=== PATIENT | female | born 1935 | race Caucasian/White ===

== ENCOUNTER 2016-09-26 22:46 | Emergency (ER) | payer MEDICARE, MEDICAID ==
[2016-09-26 23:24] LABS: ABSOLUTE EOSINOPHILS # (AUTO) 0.4 10^3/uL (0.0-0.6); ABSOLUTE LYMPHOCYTES (AUTO) 2.1 10^3/uL (0.5-4.7); ABSOLUTE MONOCYTES (AUTO) 0.7 10^3/uL (0.1-1.4); BASOPHILS % (AUTO) 0.5 % (0-2); EOSINOPHILS % (AUTO) 5.3 % (0-6); HEMATOCRIT 42.7 % (36.0-47.0); HEMOGLOBIN 14.5 g/dL (12.0-15.5); HGB HCT DIFFERENCE 0.8; LYMPHOCYTES % (AUTO) 29.8 % (13-45); MEAN CORPUSCULAR HEMOGLOBIN 30.8 pg (27.0-33.4); MEAN CORPUSCULAR VOLUME 91 fl (80-97); MONOCYTES % (AUTO) 9.3 % (3-13); RED BLOOD COUNT 4.71 10^6/uL (3.72-5.28); RED CELL DISTRIBUTION WIDTH 13.3 % (11.5-14.0); SEGMENTED NEUTROPHILS % (AUTO) 55.1 % (42-78); WHITE BLOOD COUNT 7.2 10^3/uL (4.0-10.5)
--- NOTE | 2016-09-26 23:53 | ER Document Report ---
ED General - General Stated Complaint: POSSIBLE SYNCOPE Notes: Patient is an 81-year-old female presents with complaint of syncopal episode. Patient's is a correction. She has her sons the bedside. Said that the staff had just given a shower and her walking her I was shower when she had a syncopal episode. He says she typically does not do this. The denied any other associated symptoms. Patient himself cannot tell me anything about what happened being that she has severe dementia. Patient's son says that she says history of dementia and recurrent urinary tract infections. Patient otherwise has been acting at her baseline since the episode according to the son. TRAVEL OUTSIDE OF THE [place] IN LAST 30 DAYS: No - Related Data Allergies/Adverse Reactions: aspirin [Aspirin] Allergy (Unknown, Verified 04/17/16 09:45) Penicillins Allergy (Unknown, Verified 04/17/16 09:45) Sulfa (Sulfonamide Antibiotics) Allergy (Unknown, Verified 04/17/16 09:45) Past Medical History - Social History Smoking Status: Unknown if Ever Smoked Frequency of alcohol use: None Drug Abuse: None Family History: Reviewed & Not Pertinent - Past Medical History Cardiac Medical History: Reports: Hx Coronary Artery Disease, Hx Hypercholesterolemia, Hx Hypertension Denies: Hx Heart Attack Pulmonary Medical History: Denies: Hx Asthma, Hx Bronchitis, Hx COPD, Hx Pneumonia Neurological Medical History: Denies: Hx Cerebrovascular Accident, Hx Seizures GI Medical History: Reports: Hx Gastroesophageal Reflux Disease Musculoskeltal Medical History: Denies Hx Arthritis Psychiatric Medical History: Reports: Hx Dementia, Hx Depression - Anxiety Past Surgical History: Reports: Hx Hysterectomy - Immunizations Hx Diphtheria, Pertussis, Tetanus Vaccination: Yes Review of Systems - Review of Systems -: Yes ROS unobtainable due to patient's medical condition - Patient has severe dementia Physical Exam - Vital signs Vitals: Temp Pulse Resp BP Pulse Ox 98.2 F 97 20 109/64 95 09/26/16 23:00 09/26/16 23:00 09/26/16 23:00 09/26/16 23:00 09/26/16 23:00 - Notes Notes: General Appearance: Well nourished, alert, cooperative, no acute distress, no obvious discomfort. Vitals: reviewed, See vital signs table. Head: no swelling or tenderness to the head Eyes: PERRL, EOMI, Conjuctiva clear Mouth: No decreasd moisture Lungs: No wheezing, No rales, No rhonci, No accessory muscle use, good air exchange bilaterally. Heart: Normal rate, Regular rythm, No murmur, no rub Abdomen: Normal BS, soft, No rigidity, No abdominal tenderness, No guarding, no rebound, no abdominal masses, no organomegaly Extremities: strength 5/5 in all extremities, good pulses in all extremities, no swelling or tenderness in the extremities, no edema. Skin: warm, dry, appropriate color, no rash Neuro: speech clear, oriented x 1, normal affect, responds appropriately to questions. Cranial nerves II through XII are intact. Distal sensation intact. Patient has good strength in all 4 extremities. Course - Vital Signs Vital signs: Temp Pulse Resp BP Pulse Ox 98.4 F 97 12 117/88 H 100 09/27/16 05:38 09/26/16 23:00 09/27/16 05:23 09/27/16 05:23 09/27/16 05:23 - Laboratory Result Diagrams: 09/26/16 23:15 09/27/16 00:16 Laboratory results interpreted by me: 09/26/16 09/27/16 09/27/16 23:01 00:16 03:45 Sodium 145.1 H Carbon Dioxide 31 H BUN 23 H Est GFR ( Amer) 51 L Est GFR (Non-Af Amer) 42 L Glucose 127 H POC Glucose 132 H AST 65 H Creatine Kinase 27 L Ur Leukocyte Esterase LARGE H - EKG Interpretation by Me Additional EKG results interpreted by me: 09/26/16 23:52 EKG is reviewed and interpreted by me. EKG shows normal sinus rhythm with rate of 93 beats per minute. No ST segment elevation or depression. No ischemic T wave inversions. NV interval is prolonged. QRS duration QTC intervals are within normal range. Old EKG for comparison is from 04/29/2014. - Transfer of Care Notes: 09/27/16 07:00 Patient is feeling improved. Patient says no concerning symptoms associated with the syncope. Syncope could be related to coming out of the warm shower from correction. Her cardiac enzymes are negative. CT scan of the head was obtained over age. This is negative. I do not think a CT scan of the neck was needed. The patient was assisted down to the floor when the episode happened. There is no history of significant can trauma. She does have UTI. We will place her on Cipro. I restrict return precautions if she develops any diarrhea due to her history of severe fear C. difficile in the past following antibiotics. I did discuss this with the son. He is agreeable to plan. Patient will be discharged home. Dictation of this chart was performed using voice recognition software; therefore, there may be some unintended grammatical errors. Discharge - Discharge Clinical Impression: Syncope Qualifiers: Syncope type: unspecified Qualified Code(s): R55 - Syncope and collapse UTI (urinary tract infection) Qualifiers: Urinary tract infection type: site unspecified Hematuria presence: without hematuria Qualified Code(s): N39.0 - Urinary tract infection, site not specified Condition: Good Disposition: HOME, SELF-CARE Additional Instructions: Mrs. Hogue's urine has been sent for culture. If it grows bacteria that is not sensitive to the Cipro we will call immediately to change her antibiotic. She does have a history of C. difficile in the past. It is therefore extremely important that she returns to ER immediately if she has any diarrhea. Is also very important she returns to the ER immediately if she has fevers, recurrent passing out, chest pain, or if she appears unwell. Prescriptions: Ciprofloxacin HCl [Cipro 500 mg Tablet] 500 mg PO BID #10 tablet Referrals: MIR MERCHANT MD [Primary Care Provider] - 09/28/16
[2016-09-27 00:51] LABS: ALANINE AMINOTRANSFERASE 16 U/L (9-52); ALBUMIN 4.1 g/dL (3.5-5.0); ALKALINE PHOSPHATASE 91 U/L (38-126); ANION GAP 11 (5-19); ASPARTATE AMINO TRANSFERASE 65 U/L (14-36); BILIRUBIN,TOTAL 0.8 mg/dL (0.2-1.3); BLOOD UREA NITROGEN 23 mg/dL (7-20); CALCIUM 9.3 mg/dL (8.4-10.2); CARBON DIOXIDE 31 mmol/L (22-30); CHLORIDE 103 mmol/L (98-107); CREATINE KINASE 27 U/L (30-135); CREATININE RESULT 1.22 mg/dL (0.52-1.25); GLUCOSE 127 mg/dL (75-110); POTASSIUM 3.7 mmol/L (3.6-5.0); SODIUM 145.1 mmol/L (137-145); TOTAL PROTEIN 7.3 g/dL (6.3-8.2)
[2016-09-27 01:01] LABS: CREATINE KINASE MB 0.22 ng/mL (<4.55)
[2016-09-27 01:06] LABS: TROPONIN I < 0.012 ng/mL
[2016-09-27] MEDS ORDERED: NORMAL SALINE 1000 ML 500 ML IV ONE (01:48)
[2016-09-27 04:03] LABS: APPEARANCE,URINE CLOUDY; BILIRUBIN,URINE NEGATIVE (NEGATIVE); GLUCOSE, URINE NEGATIVE (NEGATIVE); KETONES,URINE NEGATIVE (NEGATIVE); LEUKOCYTE ESTERASE,URINE LARGE (NEGATIVE); NITRITE,URINE NEGATIVE (NEGATIVE); PROTEIN,URINE NEGATIVE (NEGATIVE); URINE SPECIFIC GRAVITY 1.008; UROBILINOGEN,URINE NEGATIVE mg/dL (<2.0)
[2016-09-27] MEDS ORDERED: CIPROFLOXACIN HCL 500 MG TABLET PO ONE (04:40)
[2016-09-27 05:38] VITALS: BP 117/88
--- NOTE | 2016-09-27 10:32 | EKG REPORT ---
SEVERITY:- ABNORMAL ECG - SINUS RHYTHM FIRST DEGREE AV BLOCK PROBABLE INFERIOR INFARCT, AGE INDETERMINATE CONSIDER ANTERIOR INFARCT : Confirmed by: Luly Sullivan 27-Sep-2016 10:31:51
== END 2016-09-27 05:38 | disposition home or self-care (01) ==
LOC: ER 22:46
DX: R55 Syncope and collapse (principal); N39.0 Urinary tract infection, site not specified; I25.10 Atherosclerotic heart disease of native coronary artery without angina pectoris; I10 Essential (primary) hypertension; F03.90 Unspecified dementia, unspecified severity, without behavioral disturbance, psychotic disturbance, mood disturbance, and anxiety; Z88.6 Allergy status to analgesic agent; Z88.0 Allergy status to penicillin; Z88.2 Allergy status to sulfonamides
CPT/HCPCS: 93005; 99284; 51701; 36415; 87086; 82553; 82962; 82550; 85025; 87088; 80053; 81001; 84484; 87186; 70450; 93010; L0120; A9270; J7030

== ENCOUNTER 2017-01-10 04:13 | Inpatient (IN) | payer MEDICARE, MEDICAID ==
--- NOTE | 2017-01-10 04:56 | ER Document Report ---
ED Medical Screen (RME) - General Chief Complaint: Other Stated Complaint: TROUBLE BREATHING Time Seen by Provider: 01/10/17 04:20 Mode of Arrival: Medic Information source: Emergency Med Personnel TRAVEL OUTSIDE OF THE [place] IN LAST 30 DAYS: No - HPI Patient complains to provider of: Abnormal breathing Onset: Just prior to arrival Notes: 01/10/17 04:55 Patient is an 81-year-old female who is a resident of a local long-term, EMS was called because patient had an abnormal breathing pattern while sleeping, she would periods of rapid shallow breathing followed by periods of breath- holding patient has a history of dementia and offers no further information regarding events - Related Data Allergies/Adverse Reactions: aspirin [Aspirin] Allergy (Unknown, Verified 04/17/16 09:45) Penicillins Allergy (Unknown, Verified 04/17/16 09:45) Sulfa (Sulfonamide Antibiotics) Allergy (Unknown, Verified 04/17/16 09:45) Past Medical History - Past Medical History Cardiac Medical History: Reports: Hx Coronary Artery Disease, Hx Hypercholesterolemia, Hx Hypertension Denies: Hx Heart Attack Pulmonary Medical History: Denies: Hx Asthma, Hx Bronchitis, Hx COPD, Hx Pneumonia Neurological Medical History: Denies: Hx Cerebrovascular Accident, Hx Seizures GI Medical History: Reports: Hx Gastroesophageal Reflux Disease Musculoskeltal Medical History: Denies Hx Arthritis Psychiatric Medical History: Reports: Hx Dementia, Hx Depression - Anxiety Past Surgical History: Reports: Hx Hysterectomy - Immunizations Hx Diphtheria, Pertussis, Tetanus Vaccination: Yes
[2017-01-10] MEDS ORDERED: ONDANSETRON HCL INJ/PF 4 MG/2 ML SDV ONE (05:26)
[2017-01-10 06:29] LABS: ABSOLUTE LYMPHOCYTES (AUTO) 0.7 10^3/uL (0.5-4.7); ABSOLUTE MONOCYTES (AUTO) 0.3 10^3/uL (0.1-1.4); ABSOLUTE NEUT (AUTO) 8.8 10^3/uL (1.7-8.2); BASOPHILS % (AUTO) 0.2 % (0-2); EOSINOPHILS % (AUTO) 0.4 % (0-6); HEMATOCRIT 44.4 % (36.0-47.0); HEMOGLOBIN 14.7 g/dL (12.0-15.5); HGB HCT DIFFERENCE -0.3; LYMPHOCYTES % (AUTO) 7.2 % (13-45); MEAN CORPUSCULAR HEMOGLOBIN 30.1 pg (27.0-33.4); MEAN CORPUSCULAR HGB CONC 33.1 g/dL (32.0-36.0); MEAN CORPUSCULAR VOLUME 91 fl (80-97); MONOCYTES % (AUTO) 3.4 % (3-13); RED BLOOD COUNT 4.87 10^6/uL (3.72-5.28); RED CELL DISTRIBUTION WIDTH 13.7 % (11.5-14.0); SEGMENTED NEUTROPHILS % (AUTO) 88.8 % (42-78); WHITE BLOOD COUNT 9.9 10^3/uL (4.0-10.5)
[2017-01-10] MEDS ORDERED: LEVOFLOXACIN 750 MG/D5W RTU 150 ML IV ONE (07:11)
[2017-01-10 07:26] LABS: CREATINE KINASE MB 0.41 ng/mL (<4.55)
[2017-01-10 07:34] LABS: TROPONIN I < 0.012 ng/mL
[2017-01-10 07:58] LABS: ALANINE AMINOTRANSFERASE 242 U/L (9-52); ALBUMIN 3.9 g/dL (3.5-5.0); ALKALINE PHOSPHATASE 218 U/L (38-126); ANION GAP 13 (5-19); ASPARTATE AMINO TRANSFERASE 541 U/L (14-36); BILIRUBIN,DIRECT 1.8 mg/dL (0.0-0.4); BILIRUBIN,TOTAL 2.8 mg/dL (0.2-1.3); BLOOD UREA NITROGEN 19 mg/dL (7-20); CALCIUM 9.2 mg/dL (8.4-10.2); CARBON DIOXIDE 29 mmol/L (22-30); CHLORIDE 101 mmol/L (98-107); CREATINE KINASE 29 U/L (30-135); CREATININE RESULT 1.18 mg/dL (0.52-1.25); GLUCOSE 146 mg/dL (75-110); POTASSIUM 4.2 mmol/L (3.6-5.0); SODIUM 143.4 mmol/L (137-145); TOTAL PROTEIN 7.7 g/dL (6.3-8.2)
--- NOTE | 2017-01-10 08:01 | ER Document Report ---
ED General - General Chief Complaint: Other Stated Complaint: TROUBLE BREATHING Time Seen by Provider: 01/10/17 06:10 Mode of Arrival: Medic Information source: Relative, Outside Facility Records Cannot obtain history due to: Dementia, Altered mental status Notes: 81-year-old female history of dementia presents from care facility with concerns of cough difficulty breathing and hypoxemia. Patient noted to have vomited and aspirated. At baseline patient is able to open her eyes and speak, currently is not opening her eyes patient found satting 80% on room air not on oxygen at baseline TRAVEL OUTSIDE OF THE [place] IN LAST 30 DAYS: No - HPI Onset: Just prior to arrival Onset/Duration: Sudden Quality of pain: No pain Severity: Moderate Pain Level: Denies Associated symptoms: Vomiting, Shortness of breath Exacerbated by: Denies Relieved by: Denies Similar symptoms previously: No Recently seen / treated by doctor: No - Related Data Allergies/Adverse Reactions: aspirin [Aspirin] Allergy (Unknown, Verified 04/17/16 09:45) Penicillins Allergy (Unknown, Verified 04/17/16 09:45) Sulfa (Sulfonamide Antibiotics) Allergy (Unknown, Verified 04/17/16 09:45) Past Medical History - General Information source: Emergency Med Personnel - Social History Smoking Status: Never Smoker Cigarette use (# per day): No Chew tobacco use (# tins/day): No Smoking Education Provided: No Family History: Reviewed & Not Pertinent - Past Medical History Cardiac Medical History: Reports: Hx Coronary Artery Disease, Hx Hypercholesterolemia, Hx Hypertension Denies: Hx Heart Attack Pulmonary Medical History: Denies: Hx Asthma, Hx Bronchitis, Hx COPD, Hx Pneumonia Neurological Medical History: Denies: Hx Cerebrovascular Accident, Hx Seizures GI Medical History: Reports: Hx Gastroesophageal Reflux Disease Musculoskeltal Medical History: Denies Hx Arthritis Psychiatric Medical History: Reports: Hx Dementia, Hx Depression - Anxiety Past Surgical History: Reports: Hx Hysterectomy - Immunizations Hx Diphtheria, Pertussis, Tetanus Vaccination: Yes Review of Systems - Review of Systems Notes: PHYSICAL EXAMINATION: GENERAL: confused HEAD: Atraumatic, normocephalic. EYES: Pupils equal round and reactive to light, extraocular movements intact, conjunctiva are normal. not opening eyes ENT: Nares patent, oropharynx clear without exudates. Moist mucous membranes. NECK: Normal range of motion, supple without lymphadenopathy LUNGS:coarse rhonchi on oxygen HEART: Regular rate and rhythm without murmurs ABDOMEN: Soft, nontender, nondistended abdomen. No guarding, no rebound. No masses appreciated. Female : deferred Musculoskeletal: Normal range of motion, no pitting or edema. No cyanosis. NEUROLOGICAL: confused SKIN: hot to touch Course - Re-evaluation Re-evalutation: 01/10/17 08:06 81-year-old female presents with complaints from care facility of shortness of breath hypoxemia, patient was noted to be satting in the mid 80s, patient did not vomit which I believe is because of aspiration pneumonia, patient on lab work does note elevated liver enzymes with possible intra-abdominal source, ultrasound ordered. Patient will be admitted for sepsis - Laboratory Result Diagrams: 01/10/17 06:14 01/10/17 06:52 Laboratory results interpreted by me: 01/10/17 01/10/17 06:14 06:52 Seg Neutrophils % 88.8 H Lymphocytes % 7.2 L Absolute Neutrophils 8.8 H Est GFR ( Amer) 53 L Est GFR (Non-Af Amer) 44 L Glucose 146 H Total Bilirubin 2.8 H Direct Bilirubin 1.8 H AST 541 H ALT 242 H Alkaline Phosphatase 218 H Creatine Kinase 29 L Critical Care Note - Critical Care Note Total time excluding time spent on procedures (mins): 45 Comments: minutes of critical care time spent in direct contact evaluating and reevaluating the patient, treating symptoms, reviewing labs and studies and speaking with family and consultants excluding any procedures Discharge - Discharge Clinical Impression: Liver enzyme elevation, Hypoxemia Aspiration pneumonia Qualifiers: Aspiration pneumonia type: unspecified Laterality: unspecified laterality Lung location: unspecified part of lung Qualified Code(s): J69.0 - Pneumonitis due to inhalation of food and vomit Condition: Serious Disposition: ADMITTED INPATIENT Admitting Provider: Hospitalist Unit Admitted: [facility]
[2017-01-10 08:19] LABS: VENOUS BLOOD BASE EXCESS 5.8 mmol/L; VENOUS BLOOD HCO3 31.4 mmol/L (20-32); VENOUS BLOOD PH 7.42 (7.30-7.42)
[2017-01-10] MEDS: NORMAL SALINE 1000 ML 1,000 ML IV PRN ×4 (08:41→21:16)
[2017-01-10 08:45] LABS: APPEARANCE,URINE CLEAR; BILIRUBIN,URINE NEGATIVE (NEGATIVE); GLUCOSE, URINE NEGATIVE (NEGATIVE); KETONES,URINE NEGATIVE (NEGATIVE); LEUKOCYTE ESTERASE,URINE NEGATIVE (NEGATIVE); NITRITE,URINE NEGATIVE (NEGATIVE); PROTEIN,URINE NEGATIVE (NEGATIVE); URINE SPECIFIC GRAVITY 1.011
[2017-01-10] MEDS ORDERED: DEXTROSE 40% GEL 15 GM TUBE PO PRN ×2 (09:01)
[2017-01-10] MEDS ORDERED: GLUCAGON,HUMAN RECOMB 1 MG INJ SUBCUT PRN (09:01)
[2017-01-10] MEDS ORDERED: DEXTROSE 50%-WATER 25 GM/50 ML DISP.SYRIN IV PRN ×2 (09:01)
[2017-01-10] MEDS ORDERED: ERTAPENEM SODIUM INJ 1 GM VIAL IV ONE (09:24)
[2017-01-10 10:06] LABS: THYROID STIMULATING HORMONE 3.24 uIU/mL (0.47-4.68)
[2017-01-10] MEDS ORDERED: ACETAMINOPHEN 120 MG SUPP.RECT PR ONE (10:13)
[2017-01-10] MEDS: DOCUSATE SODIUM 100 MG CAPSULE PO SCH ×2 (12:01→14:55)
[2017-01-10] MEDS: FAMOTIDINE INJ/PF 20 MG/2 ML SDV IV SCH ×2 (12:04→21:15)
[2017-01-10] MEDS ORDERED: ERTAPENEM SODIUM 1 GM in NORMAL SALINE 50 ML IV SCH (13:00)
[2017-01-10 13:20] LABS: URINE BARBITURATES SCREEN NEGATIVE; URINE METHADONE SCREEN NEGATIVE; URINE OPIATES LOW NEGATIVE; URINE PHENCYCLIDINE SCREEN NEGATIVE
--- NOTE | 2017-01-10 17:11 | EKG REPORT ---
SEVERITY:- ABNORMAL ECG - ATRIAL FIBRILLATION, V-RATE 74-86 NONSPECIFIC INTRAVENTRICULAR CONDUCTION DELAY PROBABLE INFERIOR INFARCT, AGE INDETERMINATE : Confirmed by: Kenia Lopez MD 10-Jan-2017 17:10:54
--- NOTE | 2017-01-10 20:44 | HISTORY AND PHYSICAL E ---
History and Physical NAME: LAURIE JAUREGUI : 1935 AGE: 81Y ADMITTED: 01/10/2017 ROOM: 327 REASON FOR ADMISSION: Altered mental status. HISTORY OF PRESENT ILLNESS: The patient is an 81-year-old female who has history of dementia, hypothyroidism, anxiety who was sent to the hospital because of abnormal breathing pattern. Patient reportedly having shallow respirations and sometimes with apneic episodes. It was reported likewise that she had some rhonchi noted. Likewise, she is more unresponsive than usual. The ambulance was cold. The patient reportedly desaturated in the 80s. The patient was brought to the emergency room for evaluation. There is no definite fever. Noted there is no acute respiratory distress noted. Likewise, there is no noted discomfort or moaning. The patient apparently had episodes of nausea and reportedly vomiting. The amount of vomitus was scanty and more mucous than stomach contents. Chest x-ray did not reveal any acute infiltrate. Concern of aspiration was made and therefore a repeat chest x-ray was done still without any acute infiltrate. Diagnosis of sepsis was made. Intravenous Levaquin was given and the patient was referred for admission. No other information available at this time. Information unobtainable from the patient. Information obtained from the family who is at bedside. PAST MEDICAL HISTORY: 1. Clostridium difficile colitis. 2. Alzheimer's dementia. 3. Essential tremor. 4. Hyperlipidemia. 5. Hypothyroidism. 6. Gastroesophageal reflux disease. 7. Anxiety. PAST SURGICAL HISTORY: 1. Hysterectomy. 2. Colonoscopy with fecal impaction. ALLERGIES: 1. ASPIRIN. 2. PENICILLIN. 3. SULFA. SOCIAL HISTORY: The patient resides in a local assisted. No reported alcohol use, tobacco abuse or drug abuse. FAMILY HISTORY: Alzheimer's dementia. REVIEW OF SYSTEMS: Unobtainable at this time. Family reports no decubitus ulcers. Family reports likewise patient is baseline with less responsive but awake and sometimes can utter some words. Patient likewise does not ambulate freely. No other information available at this time. PHYSICAL EXAMINATION: GENERAL: The patient is unresponsive but is not in any acute distress. VITAL SIGNS: Blood pressure is 160/88, pulse of 100, temperature of 101, respirations 20. HEENT: Normocephalic, atraumatic. [place] palpebral conjunctivae. Anicteric sclerae. Pupils are sluggish bilateral. Arcus senilis. No nasal or oral discharge. Oral mucosa is dry. NECK: Supple with no JVD or bruit. No anterior neck mass was noted. CHEST: Symmetrical in expansion with no retractions. LUNGS: Decreased breath sounds bilateral. No adventitious sounds were heard. HEART: Regular. Slightly tachycardic with no gallops or murmurs. ABDOMEN: Flabby, soft. Mild discomfort to palpation by grimacing diffusely but more on the right upper quadrant. No rebound, guarding or bruit. LOWER EXTREMITIES: Trace pretibial edema. Mucosa and nail beds with no cyanosis. NEUROLOGICAL EXAM: Patient is unable to cooperate at this time. INITIAL LABORATORY: PH of 7.42. Creatinine of 1.18. Sodium and potassium is normal. Glucose 146. AST 541, ALT 242, alkaline phosphatase 218. Chest x-ray no acute infiltrate. WBC 9.9. ASSESSMENT: 1. Altered mental status. 2. Fever possible sepsis. 3. Abnormal liver function test. 4. Hypothyroidism. 5. Hyperlipidemia. 6. Gastroesophageal reflux disease. 7. Alzheimer's dementia. 8. History of anxiety and essential tremor. PLAN: Patient will be admitted to telemetry. Abdominal ultrasound was ordered in the emergency room. In the meantime, cultures will be sent for the blood. We will begin antibiotics with intravenous Invanz. Possibility of gallbladder pathology. We will likewise obtain a KUB for a fecal impaction. We will likewise obtain a hepatitis panel. We will obtain a urine drug screen. Patient probably on benzodiazepines or narcotics for pain control which could add up for the patient's alteration in mental status. We will hydrate the patient with normal saline. I will keep her n.p.o. except medications until the patient is fully awake. Further testing depends on the initial evaluation as outlined above. DICTATING PHYSICIAN: GLNE CHASE M.D. [id number] PHY#: [id number] ID: [id number] JOB#: [id number] ACCT: [id number] cc:GLEN CHASE M.D. > MTDD
[2017-01-11] MEDS: NORMAL SALINE 1000 ML 1,000 ML IV PRN (05:37)
[2017-01-11 05:45] LABS: HGB HCT DIFFERENCE 0.9; MEAN CORPUSCULAR HEMOGLOBIN 31.2 pg (27.0-33.4); MEAN CORPUSCULAR HGB CONC 34.2 g/dL (32.0-36.0); MEAN CORPUSCULAR VOLUME 91 fl (80-97); RED BLOOD COUNT 3.95 10^6/uL (3.72-5.28); RED CELL DISTRIBUTION WIDTH 13.6 % (11.5-14.0); WHITE BLOOD COUNT 7.8 10^3/uL (4.0-10.5)
[2017-01-11 05:48] LABS: HEMOGLOBIN 12.3 g/dL (12.0-15.5)
[2017-01-11 06:04] LABS: ANION GAP 9 (5-19); BLOOD UREA NITROGEN 17 mg/dL (7-20); CALCIUM 8.8 mg/dL (8.4-10.2); CARBON DIOXIDE 27 mmol/L (22-30); CHLORIDE 108 mmol/L (98-107); CREATININE RESULT 1.06 mg/dL (0.52-1.25); GLUCOSE 80 mg/dL (75-110); POTASSIUM 3.9 mmol/L (3.6-5.0); SODIUM 143.8 mmol/L (137-145)
[2017-01-11] MEDS: ENOXAPARIN SODIUM INJ 40 MG/0.4 ML DISP.SYRIN SUBCUT SCH (07:58)
[2017-01-11] MEDS: FAMOTIDINE INJ/PF 20 MG/2 ML SDV IV SCH ×2 (08:46→21:06)
[2017-01-11] MEDS: DOCUSATE SODIUM 100 MG CAPSULE PO SCH ×2 (09:56→16:46)
--- NOTE | 2017-01-11 11:18 | PDOC PROGRESS REPORT ---
Subjective Progress Note for:: 01/11/17 Subjective:: Patient is awake and more responsive this morning. Patient has advanced dementia. No reported respiratory distress, temperature spikes, nausea or vomiting, chills nor fever. Patient may have some incoordination on swallowing as reported by staff. Patient remained n.p.o. Physical Exam Vital Signs: Temp Pulse Resp BP Pulse Ox 98.0 F 63 16 110/63 100 01/11/17 07:46 01/11/17 07:46 01/11/17 04:26 01/11/17 07:46 01/11/17 07:46 Intake & Output 01/10/17 01/11/17 01/12/17 06:59 06:59 06:59 Intake Total 2300 Output Total 850 Balance 1450 Weight 103.1 kg General appearance: PRESENT: no acute distress, obese Head exam: PRESENT: normocephalic Eye exam: PRESENT: conjunctiva pink, EOMI Mouth exam: PRESENT: moist, neck supple Neck exam: ABSENT: JVD Respiratory exam: PRESENT: rhonchi - few bilateral Cardiovascular exam: PRESENT: RRR. ABSENT: gallop GI/Abdominal exam: PRESENT: hypoactive bowel sounds, soft. ABSENT: distended - Obese Extremities exam: PRESENT: other - Trace lower extremity edema Neurological exam: PRESENT: alert, awake Skin exam: PRESENT: dry. ABSENT: cyanosis Results Laboratory Results: 01/11/17 05:04 01/11/17 05:04 01/11/17 01/11/17 05:04 05:04 WBC 7.8 RBC 3.95 Hgb 12.3 D Hct 36.0 MCV 91 MCH 31.2 MCHC 34.2 RDW 13.6 Plt Count 184 Sodium 143.8 Potassium 3.9 Chloride 108 H Carbon Dioxide 27 Anion Gap 9 BUN 17 Creatinine 1.06 Est GFR ( Amer) > 60 Est GFR (Non-Af Amer) 50 L Glucose 80 Calcium 8.8 Impressions: KUB X-Ray 01/10/17 00:00 IMPRESSION: NO RADIOGRAPHIC EVIDENCE FOR ACUTE ABDOMINAL DISEASE. Chest X-Ray 01/10/17 04:19 IMPRESSION: NO SIGNIFICANT RADIOGRAPHIC FINDING IN THE CHEST. Abdomen Ultrasound 01/10/17 08:01 IMPRESSION: Technical limitations as above. No obvious acute findings. Assessment & Plan - Diagnosis (1) Fever Qualifiers: Fever type: unspecified Qualified Code(s): R50.9 - Fever, unspecified Is this a current diagnosis for this admission?: Yes (2) Abnormal liver function tests Is this a current diagnosis for this admission?: Yes (3) Essential tremor Is this a current diagnosis for this admission?: Yes (4) Alzheimer's dementia Is this a current diagnosis for this admission?: Yes (5) GERD (gastroesophageal reflux disease) Qualifiers: Esophagitis presence: without esophagitis Qualified Code(s): K21.9 - Gastro-esophageal reflux disease without esophagitis Is this a current diagnosis for this admission?: Yes (6) Hyperlipemia Qualifiers: Hyperlipidemia type: unspecified Qualified Code(s): E78.5 - Hyperlipidemia, unspecified Is this a current diagnosis for this admission?: Yes (7) Hypothyroidism Qualifiers: Hypothyroidism type: acquired Qualified Code(s): E03.9 - Hypothyroidism, unspecified Is this a current diagnosis for this admission?: Yes - Time Time Spent with patient: 25-34 minutes - Plan Summary Plan Summary: Medication has been reviewed. We will discontinue the Seroquel we will decrease her Lasix to once daily. We will likewise discontinue cholesterol medication, likely contributing to abnormal LFTs. We will give her Dulcolax, fecal impaction may have been the reason for fever. We will continue gentle hydration, have speech therapist evaluate the patient for swallowing safety. We will discontinue IV antibiotics, monitor for 24 hours if fever will recur, if not can be transferred back to the group home in the morning.
[2017-01-11] MEDS ORDERED: NORMAL SALINE 1000 ML 1,000 ML IV PRN (11:19)
[2017-01-11] MEDS ORDERED: BISACODYL 10 MG SUPP.RECT PR ONE (11:45)
[2017-01-11] MEDS ORDERED: METOPROLOL SUCCINATE 25 MG TAB.SR.24H PO ONE (12:00)
--- NOTE | 2017-01-11 18:42 | EKG REPORT ---
SEVERITY:- ABNORMAL ECG - SINUS RHYTHM [address] CHANGES : Confirmed by: Hood Kemp MD 11-Jan-2017 18:41:13
[2017-01-12] MEDS: DEXTROSE 5%-NORMAL SALINE 1,000 ML IV PRN ×2 (03:38→15:01)
[2017-01-12] MEDS: ENOXAPARIN SODIUM INJ 40 MG/0.4 ML DISP.SYRIN SUBCUT SCH (08:41)
[2017-01-12] MEDS: DOCUSATE SODIUM 100 MG CAPSULE PO SCH ×2 (09:49→18:00)
[2017-01-12] MEDS ORDERED: FUROSEMIDE 40 MG TABLET PO SCH (10:00)
[2017-01-12] MEDS: FUROSEMIDE 40 MG TABLET PO SCH ×2 (10:06→18:03)
[2017-01-12] MEDS: LEVOTHYROXINE SODIUM 0.05 MG TABLET PO SCH (10:06)
[2017-01-12] MEDS: FAMOTIDINE INJ/PF 20 MG/2 ML SDV IV SCH ×2 (10:06→21:41)
[2017-01-12] MEDS: METOPROLOL SUCCINATE 25 MG TAB.SR.24H PO SCH (10:06)
[2017-01-12] MEDS: ASPIRIN 81 MG TABLET, CHEWABLE PO SCH (10:08)
--- NOTE | 2017-01-12 14:20 | PDOC PROGRESS REPORT ---
Subjective Progress Note for:: 01/12/17 Subjective:: Patient will not answer questions for me. she has dementia. Physical Exam Vital Signs: Temp Pulse Resp BP Pulse Ox 99.1 F 84 20 127/72 H 98 01/12/17 11:58 01/12/17 11:58 01/12/17 11:58 01/12/17 11:58 01/12/17 11:58 Intake & Output 01/11/17 01/12/17 01/13/17 06:59 06:59 06:59 Intake Total 2300 2350 0 Output Total 850 1150 750 Balance 1450 1200 -750 Weight 103.1 kg 103.7 kg General appearance: PRESENT: no acute distress Eye exam: PRESENT: conjunctiva pink. ABSENT: scleral icterus Mouth exam: PRESENT: moist, tongue midline Neck exam: ABSENT: JVD Respiratory exam: PRESENT: clear to auscultation shereen. ABSENT: rales, rhonchi, wheezes Cardiovascular exam: PRESENT: RRR. ABSENT: diastolic murmur, rubs, systolic murmur GI/Abdominal exam: PRESENT: normal bowel sounds, soft. ABSENT: distended, guarding, mass, organolmegaly, rebound, tenderness Extremities exam: ABSENT: calf tenderness, clubbing, pedal edema Neurological exam: PRESENT: awake, oriented to person, CN II-XII grossly intact. ABSENT: oriented to place, oriented to time, oriented to situation, motor sensory deficit Psychiatric exam: PRESENT: flat affect Skin exam: PRESENT: dry, intact, warm. ABSENT: cyanosis, rash Results Laboratory Results: 01/11/17 05:04 01/11/17 05:04 Impressions: KUB X-Ray 01/10/17 00:00 IMPRESSION: NO RADIOGRAPHIC EVIDENCE FOR ACUTE ABDOMINAL DISEASE. Chest X-Ray 01/10/17 04:19 IMPRESSION: NO SIGNIFICANT RADIOGRAPHIC FINDING IN THE CHEST. Abdomen Ultrasound 01/10/17 08:01 IMPRESSION: Technical limitations as above. No obvious acute findings. Assessment & Plan - Diagnosis (1) Fever Qualifiers: Fever type: unspecified Qualified Code(s): R50.9 - Fever, unspecified Is this a current diagnosis for this admission?: YesPlan: Source is unclear for the fever. The antibiotics were stopped yesterday. Her temperature has gone up to 99.1. All cultures have been negative so far. Would like to watch for additional 24 hours to make certain she does not spike a fever and if she does not will discharge back to the skilled nursing tomorrow (2) Abnormal liver function tests Is this a current diagnosis for this admission?: YesPlan: Patient asymptomatic with no abdominal pain or nausea (3) Alzheimer's dementia Is this a current diagnosis for this admission?: YesPlan: Patient has moderate to severe dementia (4) GERD (gastroesophageal reflux disease) Qualifiers: Esophagitis presence: without esophagitis Qualified Code(s): K21.9 - Gastro-esophageal reflux disease without esophagitis Is this a current diagnosis for this admission?: YesPlan: Asymptomatic (5) Hyperlipemia Qualifiers: Hyperlipidemia type: unspecified Qualified Code(s): E78.5 - Hyperlipidemia, unspecified Is this a current diagnosis for this admission?: Yes (6) Hypothyroidism Qualifiers: Hypothyroidism type: acquired Qualified Code(s): E03.9 - Hypothyroidism, unspecified Is this a current diagnosis for this admission?: YesPlan: Continue with Synthroid - Time Time Spent with patient: 25-34 minutes - Inpatient Certification Medical Necessity: Need Close Monitoring Due to Risk of Patient Decompensation - Plan Summary Plan Summary: Watch for additional 24 hours to make certain she does not spike a fever. If she does not we will discharge to the skilled nursing tomorrow
[2017-01-12] MEDS: ACETAMINOPHEN 650 MG SUPP.RECT PR PRN (20:28)
[2017-01-13] MEDS: DEXTROSE 5%-NORMAL SALINE 1,000 ML IV PRN (00:52)
[2017-01-13 06:05] LABS: ABSOLUTE EOSINOPHILS # (AUTO) 0.1 10^3/uL (0.0-0.6); ABSOLUTE LYMPHOCYTES (AUTO) 1.4 10^3/uL (0.5-4.7); ABSOLUTE MONOCYTES (AUTO) 0.8 10^3/uL (0.1-1.4); ABSOLUTE NEUT (AUTO) 3.7 10^3/uL (1.7-8.2); BASOPHILS % (AUTO) 0.5 % (0-2); EOSINOPHILS % (AUTO) 1.2 % (0-6); HEMATOCRIT 35.3 % (36.0-47.0); HEMOGLOBIN 12.1 g/dL (12.0-15.5); LYMPHOCYTES % (AUTO) 23.8 % (13-45); MEAN CORPUSCULAR HEMOGLOBIN 30.7 pg (27.0-33.4); MEAN CORPUSCULAR HGB CONC 34.3 g/dL (32.0-36.0); MEAN CORPUSCULAR VOLUME 89 fl (80-97); MONOCYTES % (AUTO) 13.1 % (3-13); RED BLOOD COUNT 3.95 10^6/uL (3.72-5.28); RED CELL DISTRIBUTION WIDTH 13.1 % (11.5-14.0); SEGMENTED NEUTROPHILS % (AUTO) 61.4 % (42-78)
[2017-01-13 06:26] LABS: ANION GAP 8 (5-19); BLOOD UREA NITROGEN 9 mg/dL (7-20); CALCIUM 8.4 mg/dL (8.4-10.2); CARBON DIOXIDE 28 mmol/L (22-30); CHLORIDE 104 mmol/L (98-107); CREATININE RESULT 0.91 mg/dL (0.52-1.25); GLUCOSE 128 mg/dL (75-110)
[2017-01-13 06:31] LABS: POTASSIUM 2.9 mmol/L (3.6-5.0)
[2017-01-13] MEDS: POTASSI CL 20 MEQ/50 ML RIDER 50 ML IV SCH ×2 (08:34→11:38)
[2017-01-13] MEDS: ENOXAPARIN SODIUM INJ 40 MG/0.4 ML DISP.SYRIN SUBCUT SCH (08:34)
[2017-01-13] MEDS ORDERED: POTASSIUM CHLORIDE 10 MEQ TABLET.SA PO SCH (10:00)
[2017-01-13] MEDS: ASPIRIN 81 MG TABLET, CHEWABLE PO SCH (10:28)
[2017-01-13] MEDS: LEVOTHYROXINE SODIUM 0.05 MG TABLET PO SCH (10:28)
[2017-01-13] MEDS: DOCUSATE SODIUM 100 MG CAPSULE PO SCH ×2 (10:28→17:17)
[2017-01-13] MEDS: FUROSEMIDE 40 MG TABLET PO SCH ×2 (10:28→17:22)
[2017-01-13] MEDS: METOPROLOL SUCCINATE 25 MG TAB.SR.24H PO SCH (10:28)
[2017-01-13] MEDS: FAMOTIDINE INJ/PF 20 MG/2 ML SDV IV SCH ×2 (10:29→20:58)
--- NOTE | 2017-01-13 11:10 | PDOC PROGRESS REPORT ---
Subjective Progress Note for:: 01/13/17 Subjective:: Is demented but denies any complaints. Son is at the bedside. Physical Exam Vital Signs: Temp Pulse Resp BP Pulse Ox 99.7 F 77 20 127/60 H 98 01/13/17 07:16 01/13/17 07:16 01/13/17 07:16 01/13/17 07:16 01/13/17 07:16 Intake & Output 01/12/17 01/13/17 01/14/17 06:59 06:59 06:59 Intake Total 2350 1542 Output Total 1150 3800 Balance 1200 -2258 Weight 103.7 kg 108.9 kg General appearance: PRESENT: no acute distress Eye exam: PRESENT: conjunctiva pink. ABSENT: scleral icterus Mouth exam: PRESENT: moist, tongue midline Neck exam: ABSENT: JVD Respiratory exam: PRESENT: clear to auscultation shereen. ABSENT: rales, rhonchi, wheezes Cardiovascular exam: PRESENT: RRR. ABSENT: diastolic murmur, rubs, systolic murmur GI/Abdominal exam: PRESENT: normal bowel sounds, soft. ABSENT: distended, guarding, mass, organolmegaly, rebound, tenderness Extremities exam: ABSENT: calf tenderness, clubbing, pedal edema Neurological exam: PRESENT: alert, awake, oriented to person, oriented to place , oriented to time, oriented to situation, CN II-XII grossly intact. ABSENT: motor sensory deficit Psychiatric exam: PRESENT: appropriate affect Skin exam: PRESENT: dry, intact, warm. ABSENT: cyanosis, rash Results Laboratory Results: 01/13/17 05:08 01/13/17 05:08 01/13/17 01/13/17 05:08 05:08 WBC 6.0 RBC 3.95 Hgb 12.1 Hct 35.3 L MCV 89 MCH 30.7 MCHC 34.3 RDW 13.1 Plt Count 193 Seg Neutrophils % 61.4 Lymphocytes % 23.8 Monocytes % 13.1 H Eosinophils % 1.2 Basophils % 0.5 Absolute Neutrophils 3.7 Absolute Lymphocytes 1.4 Absolute Monocytes 0.8 Absolute Eosinophils 0.1 Absolute Basophils 0.0 Sodium 140.0 Potassium 2.9 L* Chloride 104 Carbon Dioxide 28 Anion Gap 8 BUN 9 Creatinine 0.91 Est GFR ( Amer) > 60 Est GFR (Non-Af Amer) 59 L Glucose 128 H Calcium 8.4 Impressions: KUB X-Ray 01/10/17 00:00 IMPRESSION: NO RADIOGRAPHIC EVIDENCE FOR ACUTE ABDOMINAL DISEASE. Chest X-Ray 01/10/17 04:19 IMPRESSION: NO SIGNIFICANT RADIOGRAPHIC FINDING IN THE CHEST. Abdomen Ultrasound 01/10/17 08:01 IMPRESSION: Technical limitations as above. No obvious acute findings. Assessment & Plan - Diagnosis (1) Fever Qualifiers: Fever type: unspecified Qualified Code(s): R50.9 - Fever, unspecified Is this a current diagnosis for this admission?: YesPlan: Source is unclear for the fever. The antibiotics were stopped. Her temperature has gone up to 100. Likely is having subclinical aspiration. Avoid using any antibiotics unless absolutely necessary given her history of having severe C. difficile requiring stool transplantation (2) Abnormal liver function tests Is this a current diagnosis for this admission?: YesPlan: Patient asymptomatic with no abdominal pain or nausea (3) Alzheimer's dementia Is this a current diagnosis for this admission?: YesPlan: Patient has moderate to severe dementia (4) GERD (gastroesophageal reflux disease) Qualifiers: Esophagitis presence: without esophagitis Qualified Code(s): K21.9 - Gastro-esophageal reflux disease without esophagitis Is this a current diagnosis for this admission?: YesPlan: Asymptomatic (5) Hyperlipemia Qualifiers: Hyperlipidemia type: unspecified Qualified Code(s): E78.5 - Hyperlipidemia, unspecified Is this a current diagnosis for this admission?: Yes (6) Hypothyroidism Qualifiers: Hypothyroidism type: acquired Qualified Code(s): E03.9 - Hypothyroidism, unspecified Is this a current diagnosis for this admission?: YesPlan: Continue with Synthroid - Time Time Spent with patient: 25-34 minutes - Inpatient Certification Medical Necessity: Need Close Monitoring Due to Risk of Patient Decompensation
[2017-01-13] MEDS: POTASSIUM CHLORIDE 20 MEQ/15 ML UDCUP PO SCH (20:57)
[2017-01-13] MEDS: ACETAMINOPHEN 650 MG SUPP.RECT PR PRN (20:57)
[2017-01-14] MEDS: DEXTROSE 5%-NORMAL SALINE 1,000 ML IV PRN (01:11)
[2017-01-14 07:03] LABS: ANION GAP 9 (5-19); BLOOD UREA NITROGEN 7 mg/dL (7-20); CALCIUM 8.6 mg/dL (8.4-10.2); CARBON DIOXIDE 31 mmol/L (22-30); CHLORIDE 103 mmol/L (98-107); CREATININE RESULT 0.85 mg/dL (0.52-1.25); GLUCOSE 109 mg/dL (75-110); POTASSIUM 3.4 mmol/L (3.6-5.0); SODIUM 143.2 mmol/L (137-145)
[2017-01-14 08:11] VITALS: BP 130/83
--- NOTE | 2017-01-14 08:27 | PDOC TRANSFER SUMMARY ---
General - Admit/Disc Date/PCP Admission Date/Primary Care Provider: 01/10/17 09:01 Discharge Date: 01/14/17 - Discharge Diagnosis (1) Fever Is this a current diagnosis for this admission?: YesSummary: Most likely secondary to recurrent aspiration. No pneumonia on chest x-ray. All cultures have been negative. Because of the aspiration the patient is put on pured diet with thin liquids alternating bites and sips with aspiration precautions (2) Abnormal liver function tests Is this a current diagnosis for this admission?: YesSummary: The patient's simvastatin was stopped because of abnormal liver function tests (3) Alzheimer's dementia Is this a current diagnosis for this admission?: Yes (4) GERD (gastroesophageal reflux disease) Is this a current diagnosis for this admission?: Yes (5) Hyperlipemia Is this a current diagnosis for this admission?: Yes (6) Hypothyroidism Is this a current diagnosis for this admission?: Yes - Additional Information Resuscitation Status: Full Code Discharge Diet: Cardiac - puree, thin liquids, alternate bites with sips, aspiration precautions Discharge Activity: Activity As Tolerated Home Medications: Acetaminophen [Tylenol 325 mg Tablet] 650 mg PO Q4HP PRN 01/10/17 Aspirin [Aspirin 81 mg Chewable Tablet] 81 mg PO DAILY 01/10/17 Furosemide [Lasix] 40 mg PO BID 01/10/17 Levothyroxine Sodium [Synthroid] 50 mcg PO DAILY 01/10/17 Mag Hydrox/Al Hydrox/Simeth [Maalox Suspension] 30 ml PO DAILYP PRN 01/10/17 Magnesium Hydroxide [Milk of Magnesia 30 ml Udcup] 30 ml PO DAILYP PRN 01/10/17 Metoprolol Succinate [Toprol Xl 25 mg Tab.sr] 25 mg PO DAILY 01/10/17 Multivitamin [Daily Multiple Vitamin] 1 tab PO DAILY 01/10/17 Potassium Chloride [K-Tab ER] 20 meq PO DAILY 01/10/17 Quetiapine Fumarate [Seroquel] 50 mg PO QHS 01/10/17 Ranitidine HCl [Zantac 150 mg Tablet] 150 mg PO BID 01/10/17 History of Present Illness Admission Date/PCP: 01/10/17 09:01 History of Present Illness: LAURIE JAUREGUI is a 81 year old female with dementia who is a resident at [facility] who presented with worsening mental status. She was more unresponsive than usual. Patient also had a low-grade fever and some questionable hypoxia. The patient was admitted for further evaluation of the above Hospital Course Hospital Course: LAURIE JAUREGUI is a 81 year old female with dementia who is a resident at [facility] who presented with worsening mental status. She was more unresponsive than usual. Patient also had a low-grade fever and some questionable hypoxia. The patient had blood cultures drawn and have all been negative. The patient did not have a pneumonia but has had problems with intermittent aspiration. This was felt this most likely was the cause for her fever. It has resolved. The patient was evaluated by speech therapy who recommended pured diet with thin liquids alternating bites and sips along with aspirations precautions. We will send back to [facility]. I discussed with the son at the bedside about placement of an PEG tube to prevent recurrent aspiration and the family is not interested in that at this time and I agree with that decision. Physical Exam Vital Signs: Temp Pulse Resp BP Pulse Ox 98.0 F 81 17 130/83 H 99 01/14/17 07:01 01/14/17 07:01 01/14/17 07:01 01/14/17 07:01 01/14/17 07:01 Intake & Output 01/13/17 01/14/17 01/15/17 06:59 06:59 06:59 Intake Total 1542 2627 Output Total 3800 5325 Balance -6329 -1742 Weight 108.9 kg 109 kg General appearance: PRESENT: no acute distress Eye exam: PRESENT: conjunctiva pink. ABSENT: scleral icterus Mouth exam: PRESENT: moist, tongue midline Neck exam: ABSENT: JVD Respiratory exam: PRESENT: clear to auscultation shereen. ABSENT: rales, rhonchi, wheezes Cardiovascular exam: PRESENT: RRR. ABSENT: diastolic murmur, rubs, systolic murmur Pulses: PRESENT: normal dorsalis pedis pul Vascular exam: PRESENT: normal capillary refill GI/Abdominal exam: PRESENT: normal bowel sounds, soft. ABSENT: distended, guarding, mass, organolmegaly, rebound, tenderness Extremities exam: ABSENT: calf tenderness, clubbing, pedal edema Neurological exam: PRESENT: alert, awake, oriented to person, oriented to place , CN II-XII grossly intact. ABSENT: oriented to time, oriented to situation, motor sensory deficit Psychiatric exam: PRESENT: flat affect Skin exam: PRESENT: dry, intact, warm. ABSENT: cyanosis, rash Results Laboratory Results: 01/13/17 05:08 01/14/17 05:17 01/14/17 05:17 Sodium 143.2 Potassium 3.4 L Chloride 103 Carbon Dioxide 31 H Anion Gap 9 BUN 7 Creatinine 0.85 Est GFR ( Amer) > 60 Est GFR (Non-Af Amer) > 60 Glucose 109 Calcium 8.6 Impressions: KUB X-Ray 01/10/17 00:00 IMPRESSION: NO RADIOGRAPHIC EVIDENCE FOR ACUTE ABDOMINAL DISEASE. Chest X-Ray 01/10/17 04:19 IMPRESSION: NO SIGNIFICANT RADIOGRAPHIC FINDING IN THE CHEST. Abdomen Ultrasound 01/10/17 08:01 IMPRESSION: Technical limitations as above. No obvious acute findings. Transfer Plan - Disposition Transfer Plan: Patient is discharged to [facility] assisted living. Patient is a DO NOT RESUSCITATE at the request of the family. - Time Spent with Patient Time spent with patient: Greater than 30 Minutes Qualifiers PATEINT BEING DISCHARGED WITH ANY OF THE FOLLOWING DIAGNOSIS?: No Plan Discharge Plan: discharge to [facility] assisted living Time Spent: Greater than 30 Minutes
[2017-01-14] MEDS: ASPIRIN 81 MG TABLET, CHEWABLE PO SCH (10:16)
[2017-01-14] MEDS: FUROSEMIDE 40 MG TABLET PO SCH (10:16)
[2017-01-14] MEDS: POTASSIUM CHLORIDE 20 MEQ/15 ML UDCUP PO SCH (10:16)
[2017-01-14] MEDS: DOCUSATE SODIUM 100 MG CAPSULE PO SCH (10:16)
[2017-01-14] MEDS: FAMOTIDINE INJ/PF 20 MG/2 ML SDV IV SCH (10:16)
[2017-01-14] MEDS: LEVOTHYROXINE SODIUM 0.05 MG TABLET PO SCH (10:16)
[2017-01-14] MEDS: ENOXAPARIN SODIUM INJ 40 MG/0.4 ML DISP.SYRIN SUBCUT SCH (10:16)
[2017-01-14] MEDS: METOPROLOL SUCCINATE 25 MG TAB.SR.24H PO SCH (10:16)
== END 2017-01-14 12:57 | disposition home health service (06) | DRG 864 ==
LOC: ER 04:13 → UNDOADMIN 08:13 → EH 08:13 → UNDOADMIN 09:01 → EH 09:01 → 3S 09:01 → EH 10:44 → 3S 01-14 05:04
DX: R50.9 Fever, unspecified (principal); Z66 Do not resuscitate; R09.02 Hypoxemia; E03.9 Hypothyroidism, unspecified; I25.10 Atherosclerotic heart disease of native coronary artery without angina pectoris; E78.5 Hyperlipidemia, unspecified; I10 Essential (primary) hypertension; K21.9 Gastro-esophageal reflux disease without esophagitis; F41.8 Other specified anxiety disorders; G30.9 Alzheimer's disease, unspecified; F02.80 Dementia in other diseases classified elsewhere, unspecified severity, without behavioral disturbance, psychotic disturbance, mood disturbance, and anxiety; G25.0 Essential tremor; R94.5 Abnormal results of liver function studies; Z88.6 Allergy status to analgesic agent; Z88.0 Allergy status to penicillin; Z88.2 Allergy status to sulfonamides
CPT/HCPCS: 36415; 71010; 74000; 76705; 80048; 80053; 80074; 80307; 81001; 82140; 82550; 82553; 82803; 82962; 83605; 83880; 84439; 84443; 84484; 85025; 85027; 87040; 93005; 93010; 96374; 99285; G8996-GN; G8997-GN; G8998-GN; J1335; J1650; J1956; J2405; J3480; J3490; J7030; S0028

== ENCOUNTER 2017-04-01 16:14 | Emergency (ER) | payer MEDICARE, MEDICAID ==
--- NOTE | 2017-04-01 18:12 | ER Document Report ---
ED Medical Screen (RME) - General Chief Complaint: Abnormal Lab Results Stated Complaint: ABNORMAL LABS Time Seen by Provider: 04/01/17 18:06 Mode of Arrival: Wheelchair Information source: Relative Notes: Patient presents with family states that she had outpatient lab work demonstrating elevated liver function test. Patient did have jaundice that started 2 days ago with nausea and vomiting. Patient has not had any vomiting today. hx: Alzheimer's, hypertension, hypothyroid, hysterectomy, anxiety, depression TRAVEL OUTSIDE OF THE [place] IN LAST 30 DAYS: No - Related Data Allergies/Adverse Reactions: aspirin [Aspirin] Allergy (Unknown, Verified 04/01/17 16:21) Penicillins Allergy (Unknown, Verified 04/01/17 16:21) Sulfa (Sulfonamide Antibiotics) Allergy (Unknown, Verified 04/01/17 16:21) Past Medical History - Social History Chew tobacco use (# tins/day): No Frequency of alcohol use: None Drug Abuse: None - Past Medical History Cardiac Medical History: Reports: Hx Coronary Artery Disease, Hx Hypercholesterolemia, Hx Hypertension Denies: Hx Heart Attack Pulmonary Medical History: Denies: Hx Asthma, Hx Bronchitis, Hx COPD, Hx Pneumonia Neurological Medical History: Denies: Hx Cerebrovascular Accident, Hx Seizures Renal/ Medical History: Denies: Hx Peritoneal Dialysis GI Medical History: Reports: Hx Gastroesophageal Reflux Disease Musculoskeltal Medical History: Denies Hx Arthritis Psychiatric Medical History: Reports: Hx Dementia, Hx Depression Past Surgical History: Reports: Hx Hysterectomy - Immunizations Hx Diphtheria, Pertussis, Tetanus Vaccination: Yes Physical Exam - Vital signs Vitals: Pulse Resp BP Pulse Ox 83 22 H 128/75 H 96 04/01/17 16:21 04/01/17 16:21 04/01/17 16:21 04/01/17 16:21 - Skin Skin Temperature: Warm Skin Moisture: Dry Skin Color: Jaundiced Course - Vital Signs Vital signs: Temp Pulse Resp BP Pulse Ox 83 22 H 128/75 H 96 04/01/17 16:21 04/01/17 16:21 04/01/17 16:21 04/01/17 16:21
[2017-04-01 20:21] LABS: ABSOLUTE BASOPHILS # (AUTO) 0.1 10^3/uL (0.0-0.2); ABSOLUTE EOSINOPHILS # (AUTO) 0.2 10^3/uL (0.0-0.6); ABSOLUTE LYMPHOCYTES (AUTO) 2.4 10^3/uL (0.5-4.7); ABSOLUTE MONOCYTES (AUTO) 0.7 10^3/uL (0.1-1.4); ABSOLUTE NEUT (AUTO) 3.7 10^3/uL (1.7-8.2); EOSINOPHILS % (AUTO) 2.7 % (0-6); HEMATOCRIT 43.1 % (36.0-47.0); HEMOGLOBIN 14.4 g/dL (12.0-15.5); HGB HCT DIFFERENCE 0.1; MEAN CORPUSCULAR HEMOGLOBIN 30.7 pg (27.0-33.4); MEAN CORPUSCULAR HGB CONC 33.5 g/dL (32.0-36.0); MEAN CORPUSCULAR VOLUME 92 fl (80-97); MONOCYTES % (AUTO) 9.5 % (3-13); RED CELL DISTRIBUTION WIDTH 14.4 % (11.5-14.0); SEGMENTED NEUTROPHILS % (AUTO) 52.8 % (42-78)
[2017-04-01 20:30] LABS: PARTIAL THROMBOPLASTIN TIME 28.6 SEC (23.5-35.8); PROTHROMBIN TIME 12.8 SEC (11.4-15.4)
[2017-04-01 20:40] LABS: ALANINE AMINOTRANSFERASE 141 U/L (9-52); ALBUMIN 3.7 g/dL (3.5-5.0); ALKALINE PHOSPHATASE 351 U/L (38-126); ANION GAP 12 (5-19); ASPARTATE AMINO TRANSFERASE 119 U/L (14-36); BILIRUBIN,DIRECT 2.3 mg/dL (0.0-0.4); BILIRUBIN,TOTAL 3.2 mg/dL (0.2-1.3); BLOOD UREA NITROGEN 24 mg/dL (7-20); CALCIUM 9.2 mg/dL (8.4-10.2); CARBON DIOXIDE 31 mmol/L (22-30); CHLORIDE 99 mmol/L (98-107); GLUCOSE 94 mg/dL (75-110); LIPASE 154.7 U/L (23-300); POTASSIUM 4.5 mmol/L (3.6-5.0); SODIUM 142.2 mmol/L (137-145); TOTAL PROTEIN 7.6 g/dL (6.3-8.2)
--- NOTE | 2017-04-01 22:12 | ER Document Report ---
ED General - General Chief Complaint: Abnormal Lab Results Stated Complaint: ABNORMAL LABS Time Seen by Provider: 04/01/17 18:06 Mode of Arrival: Wheelchair Cannot obtain history due to: Dementia Notes: Patient is an 82-year-old female with a history of advanced dementia preventing her from providing meaningful history who presents from her primary care doctor' s office with concerns of elevated liver function testing. No additional concerns are listed and patient has a cognitive impairment that prohibits her from providing additional meaningful history. Her sounds at the bedside states the patient is acting actually acting better than her normal and they have not seen her looking this well for quite some time. They do note that patient is hospice care only due to her progressive dementia. TRAVEL OUTSIDE OF THE [place] IN LAST 30 DAYS: No - Related Data Allergies/Adverse Reactions: aspirin [Aspirin] Allergy (Unknown, Verified 04/01/17 16:21) Penicillins Allergy (Unknown, Verified 04/01/17 16:21) Sulfa (Sulfonamide Antibiotics) Allergy (Unknown, Verified 04/01/17 16:21) Past Medical History - General Information source: Relative Cannot obtain history due to: Dementia - Social History Smoking Status: Never Smoker Chew tobacco use (# tins/day): No Frequency of alcohol use: None Drug Abuse: None Lives with: Retirement Family History: Reviewed & Not Pertinent Patient has suicidal ideation: No Patient has homicidal ideation: No - Past Medical History Cardiac Medical History: Reports: Hx Coronary Artery Disease, Hx Hypercholesterolemia, Hx Hypertension Denies: Hx Heart Attack Pulmonary Medical History: Denies: Hx Asthma, Hx Bronchitis, Hx COPD, Hx Pneumonia Neurological Medical History: Denies: Hx Cerebrovascular Accident, Hx Seizures Renal/ Medical History: Denies: Hx Peritoneal Dialysis GI Medical History: Reports: Hx Gastroesophageal Reflux Disease Musculoskeltal Medical History: Denies Hx Arthritis Psychiatric Medical History: Reports: Hx Dementia, Hx Depression Past Surgical History: Reports: Hx Hysterectomy - Immunizations Hx Diphtheria, Pertussis, Tetanus Vaccination: Yes Review of Systems - Review of Systems -: Yes ROS unobtainable due to patient's medical condition Physical Exam - Vital signs Vitals: Pulse Resp BP Pulse Ox 83 22 H 128/75 H 96 04/01/17 16:21 04/01/17 16:21 04/01/17 16:21 04/01/17 16:21 Interpretation: Normal Notes: PHYSICAL EXAMINATION: GENERAL: Well-appearing, well-nourished and in no acute distress. HEAD: Atraumatic, normocephalic. EYES: Pupils equal round and reactive to light, extraocular movements intact, sclera anicteric, conjunctiva are normal. ENT: nares patent, oropharynx clear without exudates. Moist mucous membranes. NECK: Normal range of motion, supple without lymphadenopathy LUNGS: Breath sounds clear to auscultation bilaterally and equal. No wheezes rales or rhonchi. HEART: Regular rate and rhythm without murmurs ABDOMEN: Soft, nontender, normoactive bowel sounds. No guarding, no rebound. No masses appreciated. EXTREMITIES: Normal range of motion, no pitting or edema. No cyanosis. NEUROLOGICAL: No focal neurological deficits. Moves all extremities spontaneously and on command. PSYCH: Pleasant but disoriented, confused SKIN: Warm, Dry, normal turgor, no rashes or lesions noted. Course - Re-evaluation Re-evalutation: 04/01/17 22:11 Patient presents with primary care doctors concerns about elevated liver function testing. Review of labs from December actually demonstrates that these are improved today relative to December. The 2 sons of the bedside report that the patient is actually acting much better than she typically does. They also note that she has hospice care and that they would not want any aggressive interventions regarding his elevated liver function tests. Patient's abdominal exam is benign without any tenderness. The patient has not complained of any abdominal tenderness. This would make a obstructing stone unlikely particular given the duration of her symptoms and the improvement of her liver function tests. Hepatitis panel has been sent and her primary care doctor can request these records. I have provided the sounds with a copy of her liver function testing from today and december. No additional indication for labs or imaging. At this time will discharge with return precautions and follow-up recommendations. Verbal discharge instructions given a the bedside and opportunity for questions given. Medication warnings reviewed. Patient is in agreement with this plan and has verbalized understanding of return precautions and the need for primary care follow-up in the next 24-72 hours. - Vital Signs Vital signs: Temp Pulse Resp BP Pulse Ox 88 18 128/72 H 95 04/01/17 22:25 04/01/17 22:25 04/01/17 22:25 04/01/17 22:25 - Laboratory Result Diagrams: 04/01/17 19:40 04/01/17 19:40 Laboratory results interpreted by me: 04/01/17 04/01/17 19:40 19:40 RDW 14.4 H Carbon Dioxide 31 H BUN 24 H Est GFR ( Amer) 52 L Est GFR (Non-Af Amer) 43 L Total Bilirubin 3.2 H Direct Bilirubin 2.3 H AST 119 H ALT 141 H Alkaline Phosphatase 351 H Discharge - Discharge Clinical Impression: Abnormal liver function tests Condition: Good Disposition: HOME, SELF-CARE Additional Instructions: Please return to the emergency room immediately if you experience any concerning symptoms including high fevers, severe headache, chest pain, difficulty breathing, abdominal pain, slurred speech, numbness or weakness in your arms or legs, or any other symptom that concerns you. Referrals: MIR MERCHANT MD [Primary Care Provider] - Follow up as needed
[2017-04-01 22:25] VITALS: BP 128/72
== END 2017-04-01 22:25 | disposition home or self-care (01) ==
LOC: ER 16:14
DX: R79.89 Other specified abnormal findings of blood chemistry (principal); F03.90 Unspecified dementia, unspecified severity, without behavioral disturbance, psychotic disturbance, mood disturbance, and anxiety; I25.10 Atherosclerotic heart disease of native coronary artery without angina pectoris; I10 Essential (primary) hypertension; Z88.6 Allergy status to analgesic agent; Z88.2 Allergy status to sulfonamides; Z88.0 Allergy status to penicillin
CPT/HCPCS: 36415; 80053; 80074; 83690; 85025; 85610; 85730; 99283